=== PATIENT | male | born 1960 | race Caucasian/White ===

== ENCOUNTER 2023-10-07 21:37 | Emergency (ER) | payer BC ==
[2023-10-07] MEDS ORDERED: DALBAVANCIN HCL 1,500 MG in DEXTROSE 5%-WATER - 500 ML IVPB ONE (21:45)
[2023-10-07 21:55] VITALS: BP 154/92; PULSE 66; RESP 18; TEMP 98.9; BMI 29.8
[2023-10-07] MEDS ORDERED: DALBAVANCIN HCL 500 MG VIAL (RESTRICTED TO ID ONLY) IVPB ONE (21:56)
== END 2023-10-07 23:49 | disposition home or self-care (01) ==
LOC: FER 21:37
DX: L03.211 Cellulitis of face (principal)
CPT/HCPCS: 99284-25; J0875